=== PATIENT | female | born 1945 | race Caucasian/White ===

== ENCOUNTER 2018-11-21 12:39 | Emergency (ER) | payer MEDICARE ==
[2018-11-21] MEDS ORDERED: Aspirin 81 MG Tab.Chew PO ONE (12:46)
[2018-11-21] MEDS ORDERED: Aspirin 81 MG Tab.Chew ONE (12:47)
[2018-11-21] MEDS: Nitroglycerin 0.4 MG Tab.SL SL PRN ×2 (12:51→13:25)
[2018-11-21] MEDS ORDERED: Nitroglycerin 0.4 MG Tab.SL ONE (12:51)
[2018-11-21] MEDS ORDERED: Nitroglycerin 0.4 MG Tab.SL SL ONE (12:52)
[2018-11-21] MEDS ORDERED: Heparin Sodium 5,000 Units/ML Vial IVPUSH ONE (13:24)
[2018-11-21] MEDS ORDERED: Sodium Chloride 0.9% 1,000 ML IV SCH (13:30)
--- NOTE | 2018-11-21 13:47 | CRLCR ---
INDICATION: Chest pain TECHNIQUE: Chest radiograph 1 view COMPARISON: None FINDINGS: Moderate degradation of image quality noted due to body habitus. Mediastinum: The mediastinum is normal in appearance. The heart silhouette is normal in size and morphology. Lung: Both lungs are unremarkable in appearance. Mild subpleural senescent pulmonary fibrosis is present in the lower lung zones. No sign of pleural effusion seen. No pneumothorax is identified. Bone and Soft tissue: Unremarkable for age. IMPRESSION: 1. No acute cardiopulmonary disease is seen. Dictated by Zeferino Almeida MD @ 11/21/2018 1:45:36 PM Dictated by: Zeferino Almeida MD @ 11/21/2018 13:45:42 (Electronically Signed)
--- NOTE | 2018-11-21 13:50 | EDM.PDOC ---
ED HPI GENERAL MEDICAL PROBLEM - General Chief Complaint: Chest Pain Stated Complaint: CHEST PAIN Time Seen by Provider: 11/21/18 12:55 Source of Information: Reports: Patient History Limitations: Reports: No Limitations - History of Present Illness INITIAL COMMENTS - FREE TEXT/NARRATIVE: pt arrived with a history of chest pain which started at 11 am and was persistent. She had left sided chest pain left arm pain and pain in the left neck area. She did get sweaty. Her bs wasok at that time at 115. Onset: Today, Sudden, Other ( started at 11 am. ) Duration: Hour(s): Location: Reports: Chest Associated Symptoms: Reports: Chest Pain, Diaphoresis, Shortness of Breath Chest Pain Score (Numeric/FACES): 7 - Related Data Allergies Allergy/AdvReac Type Severity Reaction Status Date / Time Penicillins Allergy Cannot Verified 11/21/18 13:00 Remember Home Meds: Home Meds Insulin Glargine,Hum.Rec.Anlog [Lantus Solostar] 22 units SUBCNJ BEDTIME [History] Insulin Lispro [HumaLOG] 3 units SUBCNJ QID 11/21/18 [History] Lansoprazole [Prevacid 24Hr] 15 mg PO DAILY 11/21/18 [History] dilTIAZem HCl [Diltiazem 24Hr ER (Xr)] 360 mg PO DAILY 11/21/18 [History] ePHEDrine Sulfate/Guaifenesin [Bronkaid Dual Action Caplet] 11/21/18 [History] traMADol [Ultram] 50 mg PO ASDIRECTED 11/21/18 [History] Past Medical History HEENT History: Reports: Impaired Vision Cardiovascular History: Reports: High Cholesterol, Hypertension Respiratory History: Reports: Asthma [employer] History: Reports: Musculoskeletal History: Reports: Arthritis Endocrine/Metabolic History: Reports: Diabetes, Type II Social & Family History - Tobacco Use Smoking Status *Q: Never Smoker - Caffeine Use Caffeine Use: Reports: Soda - Recreational Drug Use Recreational Drug Use: No ED ROS GENERAL - Review of Systems Review Of Systems: See Below Constitutional: Reports: Weakness, Fatigue HEENT: Reports: No Symptoms Respiratory: Reports: Shortness of Breath, Other Cardiovascular: Reports: Chest Pain, Other (pt had jaw and left arm pain) Endocrine: Reports: No Symptoms, Other (pt is a diabetic) GI/Abdominal: Reports: Nausea, Other (pt does have some gerd. ) : Reports: No Symptoms Musculoskeletal: Reports: No Symptoms Skin: Reports: No Symptoms Neurological: Reports: No Symptoms ED EXAM, GENERAL - Physical Exam Exam: See Below Free Text/Narrative:: pt arrived with chest pain and pain in her left arm and left jaw area. She was feeling sob. This started at 11 am. Exam Limited By: No Limitations General Appearance: Alert, Anxious, Moderate Distress, Other (pt is rating her chest pain at a 8. pupils are equal and reactive. ) Ears: Normal TMs Nose: Normal Inspection Throat/Mouth: Normal Inspection Head: Atraumatic Neck: Normal Inspection Respiratory/Chest: No Respiratory Distress Cardiovascular: Regular Rate, Rhythm, Other (pt has a grade 2 systolic murmur. ) GI/Abdominal: Soft, Non-Tender (Female) Exam: Deferred Rectal (Female) Exam: Deferred Back Exam: Normal Inspection Extremities: Other (no edema dimissed pulses) Neurological: Alert, Oriented, Normal Cognition Course - Vital Signs Last Recorded V/S: Last Vital Signs Temp 36.7 C 11/21/18 12:55 Pulse 86 11/21/18 15:30 Resp 18 11/21/18 15:09 BP 145/67 H 11/21/18 15:30 Pulse Ox 94 L 11/21/18 15:09 - Orders/Labs/Meds Labs: Laboratory Tests 11/21/18 11/21/18 11/21/18 Range/Units 12:50 12:50 12:50 WBC 8.4 (4.5-11.0) K/uL RBC 5.27 (3.30-5.50) M/uL Hgb 15.1 H (12.0-15.0) g/dL Hct 47.6 (36.0-48.0) % MCV 90 (80-98) fL MCH 29 (27-31) pg MCHC 32 (32-36) % Plt Count 354 (150-400) K/uL Neut % (Auto) 65 (36-66) % Lymph % (Auto) 19 L (24-44) % Crosby % (Auto) 11 H (2-6) % Eos % (Auto) 4 (2-4) % Baso % (Auto) 1 (0-1) % APTT (27.0-36.0) sec Sodium 140 (140-148) mmol/L Potassium 3.4 L (3.6-5.2) mmol/L Chloride 104 (100-108) mmol/L Carbon Dioxide 25 (21-32) mmol/L Anion Gap 14.4 H (5.0-14.0) mmol/L BUN 25 H (7-18) mg/dL Creatinine 2.0 H (0.6-1.0) mg/dL Est Cr Clr Drug Dosing 22.21 mL/min Estimated GFR (MDRD) 24 L (>60) Glucose 83 (74-106) mg/dL Calcium 9.0 (8.5-10.1) mg/dL Total Bilirubin 0.5 (0.2-1.0) mg/dL AST 30 (15-37) U/L ALT 23 (12-78) U/L Alkaline Phosphatase 130 H (46-116) U/L Troponin I 3.313 H* (0.000-0.056) ng/mL Total Protein 8.5 H (6.4-8.2) g/dL Albumin 3.4 (3.4-5.0) g/dL Globulin 5.1 H (2.3-3.5) g/dL Albumin/Globulin Ratio 0.7 L (1.2-2.2) 11/21/18 Range/Units 13:57 WBC (4.5-11.0) K/uL RBC (3.30-5.50) M/uL Hgb (12.0-15.0) g/dL Hct (36.0-48.0) % MCV (80-98) fL MCH (27-31) pg MCHC (32-36) % Plt Count (150-400) K/uL Neut % (Auto) (36-66) % Lymph % (Auto) (24-44) % Crosby % (Auto) (2-6) % Eos % (Auto) (2-4) % Baso % (Auto) (0-1) % APTT 27.3 (27.0-36.0) sec Sodium (140-148) mmol/L Potassium (3.6-5.2) mmol/L Chloride (100-108) mmol/L Carbon Dioxide (21-32) mmol/L Anion Gap (5.0-14.0) mmol/L BUN (7-18) mg/dL Creatinine (0.6-1.0) mg/dL Est Cr Clr Drug Dosing mL/min Estimated GFR (MDRD) (>60) Glucose (74-106) mg/dL Calcium (8.5-10.1) mg/dL Total Bilirubin (0.2-1.0) mg/dL AST (15-37) U/L ALT (12-78) U/L Alkaline Phosphatase (46-116) U/L Troponin I (0.000-0.056) ng/mL Total Protein (6.4-8.2) g/dL Albumin (3.4-5.0) g/dL Globulin (2.3-3.5) g/dL Albumin/Globulin Ratio (1.2-2.2) Meds: Medications Discontinued Medications Generic Name Dose Route Start Last Admin Trade Name Freq PRN Reason Stop Dose Admin Aspirin 324 mg 11/21/18 12:46 11/21/18 12:51 Aspirin PO 11/21/18 12:47 324 mg ONETIME ONE Administration Aspirin Confirm 11/21/18 12:47 Aspirin Administered 11/21/18 12:48 Dose 324 mg .ROUTE .STK-MED ONE Heparin Sodium (Porcine) 4,000 units 11/21/18 13:24 11/21/18 13:30 Heparin Sodium IVPUSH 11/21/18 13:25 4,000 units ONETIME ONE Administration Sodium Chloride 1,000 mls @ 100 mls/hr 11/21/18 13:30 11/21/18 13:33 Normal Saline IV 100 mls/hr ASDIRECTED CARINA Administration Nitroglycerin/Dextrose 25 mg in 250 mls @ 6 mls/hr 11/21/18 14:00 11/21/18 14 :01 Nitroglycerin 25 Mg/D5w 250 Ml IV 10 mcg/min TITRATE CARINA 6 mls/hr Administration Protocol 10 MCG/MIN Nitroglycerin/Dextrose Confirm 11/21/18 13:58 11/21/18 14:03 Nitroglycerin 25 Mg/D5w 250 Ml Administered 11/21/18 13:59 Not Given Dose 25 mg in 250 mls @ as directed .ROUTE .STK-MED ONE Nitroglycerin 0.4 mg 11/21/18 12:52 Nitrostat SL 11/21/18 12:53 ONETIME ONE Nitroglycerin 0.4 mg 11/21/18 12:53 11/21/18 13:25 Nitrostat SL 0.4 mg Q5M PRN Administration Chest Pain Nitroglycerin Confirm 11/21/18 12:51 Nitrostat Administered 11/21/18 12:52 Dose 0.4 mg .ROUTE .STK-MED ONE - Re-Assessments/Exams Free Text/Narrative Re-Assessment/Exam: 11/21/18 14:01 pt arrived with left sided chest pain. She was given 2 nitros and she is pain free. Her bp was elevated on arrival. She had a chest xray which did no show acute findings. She had a ekg which showed left vent enlargement. She had a quesrionable left bundle branch block. She was found to have a elevated trop at greater than 3. She has impaired kidney funtion with a creatnine of 2. The kidney funtion problem is not new. [facility] was requested by the pt. The pt was discussed with Dr Ramirez --cardiology and he sdvised a tridil drip, heparin was given. He did not want plavix. Iv will be running at 100 cc per hour. Departure - Departure Time of Disposition: 14:06 Disposition: DC/Tfer to Acute Hospital 02 Reason for Transfer *Q: Primary PCI Indicated Condition: Fair Clinical Impression: Non-STEMI (non-ST elevated myocardial infarction), Renal insufficiency, Diabetes mellitus Referrals: PCP,None [Primary Care Provider] - Forms: ED Department Discharge Care Plan Goals: stay npo, [facility], iv normal saline at 100cc, nitroglycerin drip titrated.
[2018-11-21] MEDS ORDERED: Nitroglycerin/D5W 25 MG/250 ML BOTTLE ONE (13:58)
[2018-11-21] MEDS ORDERED: Nitroglycerin/D5W 25 MG/250 ML BOTTLE IV SCH (14:00)
== END 2018-11-21 15:38 ==
LOC: JP.ED 12:39
DX: I21.4 Non-ST elevation (NSTEMI) myocardial infarction (principal); N28.9 Disorder of kidney and ureter, unspecified; I10 Essential (primary) hypertension; E11.9 Type 2 diabetes mellitus without complications; J45.909 Unspecified asthma, uncomplicated; Z79.899 Other long term (current) drug therapy; Z79.4 Long term (current) use of insulin; Z88.0 Allergy status to penicillin
CPT/HCPCS: 36415; 71045; 80053; 84484; 85025; 85730; 93005; 93010; 96365; 96366; 96375; 99285; A9270; J1644; J3490; J7030